=== PATIENT | female | born 2000 | race Caucasian/White ===

== ENCOUNTER 2020-12-21 16:22 | Inpatient (IN) ==
[2020-12-21 18:13] LABS: Basophils # 0.1 K/mcL (0.0-0.2); Basophils % 1.2 %; Eosinophils # 0.4 K/mcL (0.0-0.6); Eosinophils % 3.7 %; Hematocrit 41.5 % (35.3-44.9); Hemoglobin 13.3 g/dL (11.5-15.4); Immature Granulocytes % 0.4 % (0-4); Lymphocytes # 2.5 K/mcL (0.6-4.6); Lymphocytes % 24.2 %; Mean Corpuscular Hemoglobin 29.1 pg (28.0-33.3); Mean Corpuscular Volume 90.8 fL (83.0-100.0); Mean Platelet Volume 9.3 fL (9.4-12.4); Monocytes # 1.4 K/mcL (0.0-1.3); Monocytes % 13.8 %; Neutrophils # 5.7 K/mcL (1.6-8.9); Platelet Count 373 K/mcL (140-400); Red Blood Count 4.57 M/mcL (3.82-4.97); Red Cell Distribution Width 14.4 % (11.5-14.5); Segmented Neutrophils % 56.7 %; White Blood Count 10.1 K/mcL (4.3-11.1)
[2020-12-21 18:26] LABS: Bilirubin,Urine Negative (Negative); Blood,Urine Negative (Negative); Clarity,Urine Clear (Clear); Color,Urine Colorless (Yellow); Glucose,Urine (UA) Normal (Normal); Ketones,Urine Negative (Negative); Leukocyte Esterase,Urine Negative (Negative); Nitrite,Urine Negative (Negative); PH,Urine 7.5 pH Units (5.0-8.0); Protein,Urine Negative (Neg-Trace); Specific Gravity,Urine 1.012 (1.010-1.025); Urobilinogen,Urine Normal (Normal)
[2020-12-21 18:35] LABS: Amphetamine Screen,Urine Negative ng/mL (Cutoff=1000); Barbiturate Screen,Urine Negative ng/mL (Cutoff=200); Benzodiazepines Screen,Urine Negative ng/mL (Cutoff=200); Cannabinoid Screen,Urine Positive ng/mL (Cutoff = 50); Cocaine Screen,Urine Negative ng/mL (Cutoff= 300); Opiate Screen,Urine Negative ng/mL (Cutoff=300); Phencyclidine Screen,Urine Negative ng/mL (Cutoff=25)
[2020-12-21 18:35] LABS: Acetaminophen < 10 mcg/mL (10-20); BUN/Creatinine Ratio 23 (6-26); Blood Urea Nitrogen 14 mg/dL (6-20); Calcium 9.4 mg/dL (8.6-10.3); Carbon Dioxide 29 mEq/L (23-29); Chloride 104 mEq/L (98-107); Ethanol < 10 mg/dL (Less than 10); Glucose 87 mg/dL (70-105); Osmolality,Calculated 284 (280-300); Salicylate < 2.5 mg/dL (15.0-30.0); Sodium 137 mEq/L (136-145); eGFR For African Americans > 60 (> 60); eGFR For Non-African Americans > 60 (> 60)
[2020-12-21] MEDS ORDERED: Nicotine 14 MG PATCH.TD24 TD ONE (19:30)
[2020-12-21] MEDS ORDERED: Ziprasidone 10 MG, Closed System Device IM Kit 1 EACH in Water for inj. (sterile) 0.5 ML IM ONE (21:40)
[2020-12-21] MEDS ORDERED: Ziprasidone 20 MG/VIAL VIAL IM ONE (21:50)
[2020-12-21] MEDS ORDERED: Water for inj. (sterile) 10 ML ONE (21:50)
[2020-12-21 23:12] LABS: Influenza A PCR Negative (Negative); Influenza B PCR Negative (Negative); Resp. Syncytial Virus PCR Negative (Negative)
[2020-12-21 23:13] LABS: SARS-CoV-2 by PCR (In House) Negative (Negative)
[2020-12-22] MEDS ORDERED: haloperidoL 5 MG TABLET PO PRN (00:56)
[2020-12-22] MEDS ORDERED: *HR* LORazepam 1 MG TABLET PO PRN (00:56)
[2020-12-22] MEDS ORDERED: *HR* LORazepam 2 MG/ML VIAL IM PRN (00:56)
[2020-12-22] MEDS ORDERED: Haloperidol Lactate 5 MG/ML VIAL IM PRN (00:56)
[2020-12-22] MEDS ORDERED: traZODone 50 MG TABLET PO PRN (00:56)
[2020-12-22] MEDS: Acetaminophen 325 MG TABLET PO PRN (02:20)
[2020-12-22] MEDS: Nicotine 2 MG GUM BC PRN ×5 (02:20→17:16)
[2020-12-22] MEDS: hydrOXYzine pamoate 25 MG CAPSULE PO PRN ×2 (04:37→10:36)
[2020-12-22] MEDS: risperiDONE 1 MG TABLET PO SCH (14:26)
[2020-12-22] MEDS ORDERED: OLANZapine 5 MG TAB.RAPDIS PO PRN (14:56)
[2020-12-22] MEDS ORDERED: OLANZapine 10 MG VIAL IM ONE (14:58)
[2020-12-22] MEDS ORDERED: OLANZapine 10 MG TAB.RAPDIS PO ONE (15:05)
[2020-12-22] MEDS: Neosporin OINT 1 APPL PACKET TP SCH (18:10)
[2020-12-22] MEDS ORDERED: OLANZapine 10 MG TAB.RAPDIS PO SCH (21:00)
[2020-12-23] MEDS: Divalproex (12 HR) 500 MG TABLET PO SCH ×3 (00:55→20:43)
[2020-12-23] MEDS: risperiDONE 1 MG TABLET PO SCH ×4 (00:55→20:43)
[2020-12-23] MEDS: Neosporin OINT 1 APPL PACKET TP SCH ×2 (01:00→08:57)
[2020-12-23] MEDS: hydrOXYzine pamoate 25 MG CAPSULE PO PRN ×2 (02:15→16:23)
[2020-12-23] MEDS: Nicotine 2 MG GUM BC PRN ×3 (09:33→20:58)
[2020-12-23] MEDS: ALYACEN PO SCH (09:55)
[2020-12-23 12:30] LABS: Alanine Aminotransferase 30 Units/L (7-52); Albumin/Globulin Ratio 1.5 (1.1-2.2); Alkaline Phosphatase 41 Units/L (34-104); Aspartate Amino Transferase 39 Units/L (13-39); BUN/Creatinine Ratio 24 (6-26); Bilirubin,Total 0.3 mg/dL (0.3-1.0); Blood Urea Nitrogen 17 mg/dL (6-20); Carbon Dioxide 25 mEq/L (23-29); Chloride 103 mEq/L (98-107); Globulin 2.6 g/dL (2.4-3.5); Glucose 112 mg/dL (70-105); Magnesium 1.9 mg/dL (1.6-2.6); Osmolality,Calculated 284 (280-300); Phosphorous 2.7 mg/dL (2.7-4.5); Potassium 3.9 mEq/L (3.5-5.1); Sodium 136 mEq/L (136-145); Total Protein 6.6 g/dL (6.4-8.9); eGFR For African Americans > 60 (> 60); eGFR For Non-African Americans > 60 (> 60)
[2020-12-23] MEDS: Acetaminophen 325 MG TABLET PO PRN (16:23)
[2020-12-23] MEDS: Neosporin OINT 15 GM TUBE TP SCH (18:12)
[2020-12-23 20:47] VITALS: O2SAT 98
[2020-12-24] MEDS: Neosporin OINT 15 GM TUBE TP SCH ×2 (00:20→08:45)
[2020-12-24] MEDS: hydrOXYzine pamoate 25 MG CAPSULE PO PRN (01:07)
[2020-12-24] MEDS: Nicotine 2 MG GUM BC PRN ×4 (01:09→14:42)
[2020-12-24] MEDS: Divalproex (12 HR) 500 MG TABLET PO SCH (08:40)
[2020-12-24] MEDS: risperiDONE 1 MG TABLET PO SCH (08:40)
[2020-12-24] MEDS: ALYACEN PO SCH (08:48)
[2020-12-24 10:17] VITALS: BP 134/84; PULSE 124; TEMP 98.7
== END 2020-12-24 17:00 | disposition home or self-care (01) | DRG 885 ==
LOC: EMEROOARM 16:22 → 1ANU 12-22 00:55
PROVIDERS: ADMIT Psychiatry & Neurology Psychiatry; ATTEND Psychiatry & Neurology Psychiatry